=== PATIENT | female | born 1970 | race Caucasian/White ===

== ENCOUNTER 2016-10-04 16:30 | Emergency (ER) | payer BC ==
[~2016-10-04] VITALS: Ht 160 cm; Wt 65.0 kg
[2016-10-04 16:31] VITALS: BP 165/77; PULSE 85; TEMP 98.2; O2SAT 94
[2016-10-04] MEDS ORDERED: AUGM875T3 PO (16:52)
[2016-10-04] MEDS ORDERED: FLUT1SPR5 EACH NARE (16:52)
--- NOTE | 2016-10-04 16:55 | PD ---
HPI Chief Complaint: Cold / Flu Symptoms Time Seen by Provider: 16:40 Travel History International Travel<30 days: No Contact w/Intl Traveler<30days: No Traveled to known affect area: No History of Present Illness HPI 46-year-old female smoker presents for evaluation of sinus pressure, congestion and cough. Symptoms started 10 days ago. She's been having pressure overlying the maxillary sinuses, cough with productive yellow sputum. She denies shortness of breath or wheezing, recent travel, sick contacts. She has had occasional chills. She has no other complaints. [facility] Past Medical History Reproductive: Yes (OVARIAN CYSTS) : 2 Miscarriage: 2 Ectopic : Yes (R OVARY REMOVED) Past Surgical History Gynecologic Surgery: Yes (LAPORASCOPIC PROCEDURE FOR ENDOMETRIOSIS) Other Surgery: Yes (HERNIA REPAIR) Social History Alcohol Use: No Tobacco Use: Yes (1PPD) Substance Use: No Allergies-Medications (Allergen,Severity, Reaction): Coded Allergies: No Known Allergies (Unverified , 10/04/16) Reported Meds & Prescriptions Reported Meds & Active Scripts Active Review of Systems Except as stated in HPI: all other systems reviewed are Neg Physical Exam Narrative GENERAL: Well-developed well-nourished female in no acute distress SKIN: Warm and dry. HEAD: Atraumatic. Normocephalic. EYES: Pupils equal and round. No scleral icterus. No injection or drainage. ENT: No nasal bleeding or discharge. Mucous membranes pink and moist. No oral pharyngeal erythema or exudate. There is some tenderness to palpation of the maxillary sinuses bilaterally. NECK: Trachea midline. No JVD. No lymphadenopathy. CARDIOVASCULAR: Regular rate and rhythm. No murmur appreciated. RESPIRATORY: No accessory muscle use. Clear to auscultation. Breath sounds equal bilaterally. Data Data Last Documented VS Vital Signs Date Time Temp Pulse Resp B/P Pulse Ox O2 Delivery O2 Flow Rate FiO2 10/04/16 16:46 16 98 Room Air 10/04/16 16:31 98.2 85 165/77 Orders Acetaminophen (Tylenol) (10/04/16 17:00) MDM Medical Decision Making Medical Screen Exam Complete: Yes Emergency Medical Condition: Yes Medical Record Reviewed: Yes Differential Diagnosis Sinusitis, bronchitis, pneumonia, influenza, rhinitis Narrative Course 46-year-old female presents with 10 days of congestion, sinus pressure and cough. Her lungs sound clear. Physical examination is consistent with sinusitis. She is being discharged with Augmentin and Flonase. Diagnosis Primary Impression: Acute sinusitis Qualified Code: J01.90 - Acute sinusitis, recurrence not specified, unspecified location Additional Instructions: Medication as prescribed. Use [id number] nasal decongestants, cough suppressants. Avoid tobacco products. Return for any emergent medical conditions. Med/Other Pt SpecificInfo: Prescription(s) given Scripts Fluticasone Nasal [place] (Flonase Nasal [place])50 Mcg/Act [id number] Mcg EACH NARE BID 10 Days Ref 0 Prov:Gladys Ford MD 10/04/16 Amoxicillin-Clavulanate (Augmentin)875-125 Mg Tab1 Tab PO BID 10 Days Ref 0 Prov:Gladys Ford MD 10/04/16 Disposition: 01 DISCHARGE HOME Condition: Stable Rom Sharpe Oct 04, 2016 16:55
[2016-10-04] MEDS ORDERED: ACETAMINOPHEN 325 MG TAB PO ONE (17:00)
== END 2016-10-04 17:17 | disposition home or self-care (01) ==
LOC: NEPD 16:30
DX: J01.90 Acute sinusitis, unspecified (principal); F17.210 Nicotine dependence, cigarettes, uncomplicated
CPT/HCPCS: 99284